=== PATIENT | male | born 1940 | race Caucasian/White ===

== ENCOUNTER 2016-05-01 08:20 | Observation (INO) | payer OTHER, MEDICARE ==
[2016-04-24 10:13] LABS: HEMATOCRIT 42.8 % (42-52); MEAN CELL VOLUME 83.9 fL (80-100); MEAN CORPUSCULAR HEMOGLOBIN 30.4 pg (25-34); MEAN CORPUSCULAR HGB CONC 36.2 g/dl (32-36); MEAN PLATELET VOLUME 10.4 fL (7.4-10.4); PLATELET COUNT 167 K/uL (130-400); WHITE BLOOD COUNT 5.84 K/uL (4.8-10.8)
[2016-04-24 10:32] LABS: INR 0.9 (0.9-1.1); PROTHROMBIN TIME (PATIENT) 10.1 SECONDS (9.0-12.0)
[2016-04-24 10:43] LABS: BLOOD UREA NITROGEN 18 mg/dl (7-18); BUN/CREATININE RATIO 17.6 (10-20); CALCIUM 9.6 mg/dl (8.5-10.1); CARBON DIOXIDE 23 mmol/L (21-32); CHLORIDE 108 mmol/L (98-107); GLUCOSE 111 mg/dl (70-99); POTASSIUM 3.8 mmol/L (3.5-5.1); SODIUM 140 mmol/L (136-145)
[2016-05-01] VITALS (8 sets, daily range): BP systolic 112–143; BP diastolic 70–83; PULSE 55–66; TEMP 36.4–36.9; O2SAT 94–97; Ht 175.3 cm; Wt 95.7 kg
[~2016-05-01] VITALS: Ht 175.3 cm; Wt 95.7 kg
[~2016-05-01 08:20] MED LIST: ACET-1256 PO; ALLO300T2 PO; ASPI-232 PO; ATOR-26 PO; CARV6.252 PO; CEFAZOLIN 1000MG/55 ML D5W 55 ML IV SCH; CHOL1000 PO; CLC6 PO; CLR10 PO; FLUN0.02 NAE; LACTATED RINGER'S 1000ML IV SCH; LOSA1TAB PO; NTRGSL/4 UT; PLV75 PO
[2016-05-01] MEDS ORDERED: CLOP1TAB15 PO (09:16)
[2016-05-01] MEDS ORDERED: BACITRACIN 50000 UNIT VIAL ONE (10:01)
[2016-05-01] MEDS ORDERED: LIDOCAINE HCL 1% 20 ML VIAL ONE (10:01)
[2016-05-01] MEDS ORDERED: BACITRACIN OINT 0.9 GM PKT ONE (10:01)
[2016-05-01] MEDS ORDERED: FENTANYL CITRATE INJ 50 MCG/1 ML 2 ML VIAL ONE (10:04)
[2016-05-01] MEDS ORDERED: MIDAZOLAM HCL 5 MG/ML 1 ML VIAL ONE (10:04)
--- NOTE | 2016-05-01 10:16 | History & Physical Bridge Note ---
H&P Re-Evaluation Bridge Note: I have examined the patient, reviewed the History & Physical and in the interval since the performance of the History & Physical I have noted the following changes of clinical significance: No changes noted. I reviewed the indications, procedure, risks and alternatives with the patient and his family and they understand and he agrees to proceed. Consent obtained.
--- NOTE | 2016-05-01 10:16 | Procedure Note ---
Pre-Mod Sedation Assessment General Date of Moderate Sedation: May 01, 2016. Vital Signs: Vital Signs Past 12 Hours Date Time Temp Pulse Resp B/P Pulse Ox O2 Delivery O2 Flow Rate FiO2 05/01/16 09:05 36.9 62 18 123/81 97 Room Air Review Cardiovascular: regular rate, rhythm Abdomen: normal bowel sounds Lungs: lungs clear Pre-Sedation Airway Assessment Oral Cavity: Capped Teeth Smoking Status: Former Smoker Procedure Planning Contraindications-for Mod Sed: None Yes Notes The planned sedation has been discussed with the patient and consent obtained. I have identified the patient, determined the appropriateness of sedation and have assessed the patient immediately prior to the procedure. All medicine(s) and interventions are by my order.
[2016-05-01] MEDS ORDERED: KEFZOL SPECIAL PROCEDURE STOCK 1 GM ADDVIAL IV ONE (10:32)
--- NOTE | 2016-05-01 11:57 | Procedure Note ---
Post-Mod Sedation Assessment General Date of Moderate Sedation May 01, 2016. Vital Signs: Vital Signs Past 12 Hours Date Time Temp Pulse Resp B/P Pulse Ox O2 Delivery O2 Flow Rate FiO2 05/01/16 11:50 59 18 99/75 96 Nasal Cannula 3 05/01/16 09:05 36.9 62 18 123/81 97 Room Air Review - Discharge Criteria Vital Signs Stable: Yes Alert/Oriented/Conversant: Yes Returned to Baseline Mental St: Yes Nausea Absent/Minimal: Yes Pain/Discomfort/Absent/Minimal: Yes Normal/Baseline Respirations: Yes Active Bleeding?: No
--- NOTE | 2016-05-01 11:59 | Cardiology Procedure Brief Nt ---
Preliminary Cardiology Note Procedure Date May 01, 2016. Pre-Procedure Diagnosis Ischemic cardiomyopathy Post-Procedure Diagnosis same Procedure(s) Performed Left subclavian venogram Dual-chamber ICD implantation Helicopter Technician Dr. Jaramillo Clinical Research Analyst(s) none Estimated Blood Loss 50 cc Preliminary Findings Good lead position, good measurements Recommendations Monitor overnight Specimens None Anesthesia local with sedation Complication(s) None Disposition PCU
[2016-05-01] MEDS ORDERED: ACETAMINOPHEN 325 MG TAB PO PRN (12:00)
[2016-05-01] MEDS ORDERED: NITROGLYCERIN 0.4 MG SL PER TAB CHARGE UT PRN (12:15)
[2016-05-01] MEDS ORDERED: IV FLUIDS COMPLETED PRN (14:30)
[2016-05-01] MEDS ORDERED: INFLUENZA ADMINISTRATION CHARGE ONE (15:30)
[2016-05-01] MEDS ORDERED: PNEUMOCOCCAL ADMINISTRATION CHARGE ONE (15:30)
[2016-05-01] MEDS ORDERED: INFLUENZA VIRUS QUAD VACCINE 0.5 ML SYR IM. ONE (15:30)
[2016-05-01] MEDS ORDERED: PNEUMOCOCCAL POLYSACCHARIDES 25 MCG/0.5 ML VIAL/SYR IM. ONE (15:30)
[2016-05-01] MEDS: KETOROLAC TROMETHAMINE 10 MG TAB PO PRN (15:52)
[2016-05-01] MEDS: CEFAZOLIN IV 2,000 MG in DEXTROSE 5% 50ML 50 ML IV SCH (18:17)
[2016-05-01] MEDS ORDERED: CARVEDILOL 12.5 MG TAB PO SCH (21:00)
[2016-05-01] MEDS ORDERED: COLCHICINE 0.6 MG TAB PO SCH (21:00)
[2016-05-01] MEDS ORDERED: ATORVASTATIN 40 MG TAB PO SCH (21:00)
[2016-05-02] MEDS: KETOROLAC TROMETHAMINE 10 MG TAB PO PRN ×2 (00:45→07:58)
[2016-05-02] MEDS: CEFAZOLIN IV 2,000 MG in DEXTROSE 5% 50ML 50 ML IV SCH (02:42)
[2016-05-02 04:00] VITALS: BP 103/64; PULSE 59; TEMP 36.7; O2SAT 96
--- NOTE | 2016-05-02 07:49 | DIAGNOSTIC IMAGING REPORT ---
CHEST 2 VIEWS ROUTINE HISTORY: EXACT TIME ORDERED Evaluate for pneumothorax and lead placement COMPARISON: Chest 05/17/2011. FINDINGS: Interval placement left-sided dual-chamber pacemaker/defibrillator. Leads appear intact. No pneumothorax. No pleural effusions. The lungs are clear. The heart is normal in size. IMPRESSION: Interval placement left-sided dual-chamber pacemaker/defibrillator. The leads are intact. No pneumothorax. Electronically signed by: Justo Claros M.D. 05/02/2016 7:47 AM Dictated Date/Time: 05/02/2016 7:44 AM
[2016-05-02] MEDS ORDERED: CARV12.52 PO (08:33)
--- NOTE | 2016-05-02 08:49 | Discharge Instructions ---
Discharge Instructions Admission Ischemic cardiomyopathy Discharge Discharge Diagnosis / Problem: S/P Dual-chamber ICD implantation Discharge Goals Goal(s): Improve disease control Activity Recommendations Activity Limitations: as noted below . Instructions / Follow-Up Instructions / Follow-Up ACTIVITY RECOMMENDATIONS: * Do not raise affected arm over head for 2 weeks. SPECIAL CARE INSTRUCTIONS: * If bleeding occurs, apply direct pressure to area for 5 minutes. * Call your doctor if you have severe pain, fever, drainage or bleeding at site. * Keep dressing on and dry for 48 hours then remove. * Keep any scheduled doctor's appointment. * Implant Card - hand held device with website information given. SKIN IRRITATION: * You may experience some redness and/or swelling in the area where radiation was administered. If any skin irritation occurs, please contact your family physician. FOLLOW UP VISIT: 05/05/16 @ 10:00 am for incision check Current Hospital Diet Patient's current hospital diet: AHA Diet (Heart Healthy) Discharge Diet Recommended Diet: AHA Diet (Heart Healthy) Pending Studies Studies pending at discharge: no Medical Emergencies . Who to Call and When: Medical Emergencies: If at any time you feel your situation is an emergency, please call 911 immediately. . Non-Emergent Contact Non-Emergency issues call your: Health Science Writer . . "Provider Documentation" section prepared by Jen Huber. VTE Core Measure Inpt VTE Proph given/why not?: Treatment not indicated
[2016-05-02] MEDS ORDERED: ATORVASTATIN 40 MG TAB PO SCH (09:00)
[2016-05-02] MEDS ORDERED: LOSARTAN POTASSIUM 25 MG TAB PO SCH (09:00)
[2016-05-02] MEDS ORDERED: LORATADINE 10 MG TAB PO SCH (09:00)
[2016-05-02] MEDS ORDERED: ASPIRIN 81 MG ECTAB PO SCH (09:00)
[2016-05-02] MEDS ORDERED: ALLOPURINOL 300 MG TAB PO SCH (09:00)
[2016-05-02] MEDS ORDERED: CLOPIDOGREL BISULFATE 75 MG TAB PO SCH (09:00)
--- NOTE | 2016-05-02 09:02 | Cardiology Follow-Up ---
Subjective Date of Service: May 02, 2016. Pt evaluation today including: conversation w/ patient, physical exam, lab review, review of studies, review of inpatient medication list Social History Smoking Status: Former Smoker History of Alcohol Use: No Review of Systems Respiratory: No shortness of breath Cardiac: + chest pain Objective Vital Signs Past 12 Hours Date Time Temp Pulse Resp B/P Pulse Ox O2 Delivery O2 Flow Rate FiO2 05/02/16 08:00 Room Air 05/02/16 04:00 Room Air 05/02/16 04:00 36.7 59 18 103/64 96 Room Air 05/01/16 23:59 Room Air 05/01/16 23:28 36.9 63 18 112/70 96 Room Air Last Recorded Weight-Kilograms: 95.700 Intake & Output 8-Hour Column 05/01/16 05/02/16 05/02/16 16:00 00:00 08:00 Intake Total 100 ml 492 ml 200 ml Output Total 550 ml Balance 100 ml -58 ml 200 ml 24-Hour Column 05/02/16 08:00 Intake Total 792 ml Output Total 550 ml Balance 242 ml Physical Exam Constitutional: Level of Distress: NAD Lungs: Auscultation: breath sounds normal Cardiovascular: Heart Auscultation: RRR, no rubs Pacemaker site is clean and dry, no significant bleeding, no hematoma. Data Imaging: Position on chest x-ray, no pneumothorax EKG: Atrial pacing throughout with appropriate antegrade conduction Telemetry reviewed: Predominantly atrial pacing, ICD function ICD evaluation: Functioning well, R waves little bit low in bipolar configuration as they were at implant but are good in unipolar and with premature ventricular beats. Acceptable function. Assessment and Plan Doing well post-ICD, the device is functioning well and the site looks good. Stable for discharge after his dose of antibiotic which he can be given slightly early.
[2016-05-02 09:04] VITALS: BP 103/64; PULSE 59; TEMP 36.7; O2SAT 96
--- NOTE | 2016-05-02 17:17 | Discharge Summary ---
Discharge Summary Admission Date: May 01, 2016 at 11:59 Discharge Date: May 02, 2016 Discharge Disposition: Home Primary Diagnosis: Ischemic cardiomyopathy Secondary Diagnoses/Problems: Medical Problems: (1) CHF (congestive heart failure) Status: Resolved (2) Myocardial infarction Status: Resolved Procedures: Dual-chamber ICD implantation Discharge Instructions Last Recorded Wt (Kilograms): 95.700 Activity Recommendations: limitations as noted below Allergies: Coded Allergies: No Known Allergies (Unverified , 05/01/16) Additional Instructions: ACTIVITY RECOMMENDATIONS: * Do not raise affected arm over head for 2 weeks. SPECIAL CARE INSTRUCTIONS: * If bleeding occurs, apply direct pressure to area for 5 minutes. * Call your doctor if you have severe pain, fever, drainage or bleeding at site. * Keep dressing on and dry for 48 hours then remove. * Keep any scheduled doctor's appointment. * Implant Card - hand held device with website information given. SKIN IRRITATION: * You may experience some redness and/or swelling in the area where radiation was administered. If any skin irritation occurs, please contact your family physician. FOLLOW UP VISIT: Keep any scheduled doctor appointments. Special Care: Call your doctor if: * Temperature above 101 degrees * Pain not relieved by pain medicine ordered * There is increased drainage or redness from any incision * You have any unanswered questions or concerns. Avoid all tobacco products. If you need help to stop smoking, call [place]'s FREE QUITLINE at . This is a free call. Admission HPI This is a very pleasant 76-year-old gentleman who has a history of coronary artery disease including myocardial infarction 2011 at which time he had stent placement in the right coronary artery. More recent cardiac catheterization June 2015 showed severe LAD stenosis for which he had atherectomy and stent placement. He does have residual disease as well. He does have a history of a cardiomyopathy with an ejection fraction which has remained in the 30% range. He is on low dose carvedilol, he has had a lot of difficulty with fatigue and ambulatory difficulty when he is on higher doses. He is also on losartan. He does not have a lot of weight of heart failure symptoms, he does have some difficulty with exertion consistent with class II NYHA heart failure symptoms, he does not have exertional angina and does not have orthopnea or PND. He has never had lightheadedness, dizziness, presyncope or syncope. He continues to be very active although he cannot do as much as he used to. Admission Physical Exam Additional Comments: Constitutional: Alert, cooperative and in no distress. HEENT: Unremarkable Neck: No jugular venous distention, carotid pulses are normal and equal bilaterally without bruits. Pulmonary: Clear to auscultation bilaterally. Cardiac: Regular rhythm with no murmur, gallop or rub. Abdomen: Soft, nontender with normal bowel sounds. Extremities: No edema. Distal pulses intact. Neurologic: No focal findings. Gait is steady. Skin: No rash, ecchymoses or petechiae. Hospital Course Patient with ischemic cardiomyopathy and class II NYHA heart failure underwent dual-chamber ICD implantation on 05/02/[address] Jaramillo. He tolerated the procedure well. Device check the following day showed excellent sensing and pacing characteristics. CXR showed good lead placement and no evidence of pneumothorax. He was deemed stable for discharge home and will have a follow-up appointment on 05/05/16 for a wound check. His carvedilol dose was increased to 12.5 mg twice daily upon discharge. Total time spent on discharge = This includes examination of the patient, discharge planning, medication reconciliation, and communication with other providers.
--- NOTE | 2016-05-10 13:14 | OPERATIVE REPORT ---
DATE OF OPERATION: 05/01/2016 PREOPERATIVE DIAGNOSES: 1. Ischemic cardiomyopathy. 2. Class 3 congestive heart failure. 3. Sinus bradycardia. POSTOPERATIVE DIAGNOSES: Same. PROCEDURE: 1. Left subclavian venogram. 2. Dual chamber ICD implantation. HISTORY OF PRESENT ILLNESS: This is a 76-year-old male who has a history of ischemic cardiomyopathy with an ejection fraction of 30%. He has bradycardia and has not been able to tolerate high doses of beta blockade. He has an intolerance to beta jasen due to poor chronotropic response with activity and resting bradycardia. He requires an ICD for primary prevention of sudden cardiac , with his bradycardia we will plan to do a chamber pacemaker which may also help to improve his exercise ability and allow higher doses of beta blockade. He also has [place] [employer] class 2 congestive heart failure. PROCEDURE: After obtaining informed consent for the procedure, he was brought to the laboratory on 05/01/2016 being NPO after midnight. He was identified in the laboratory, prepped and draped in standard sterile manner for a left-sided ICD implantation. Left subclavian venogram was performed using dye injected via the left arm IV site to opacify the left subclavian vein. Once this was accomplished, left subclavian venipuncture was performed without difficulty and a guidewire placed through the left subclavian vein into the superior vena cava. The area was further infiltrated with 1% lidocaine local anesthetic and a 5 cm incision was made parallel to the left clavicle and 2 cm below it and carried down to the anterior pectoralis fascia. A pacemaker pocket was formed by blunt dissection anterior to the pectoralis fascia and a bacitracin-soaked sponge (50,000 units in 50 mL normal saline solution) was placed in the pocket. A 10.5-[place] Medtronic lead introducer was placed over the guidewire into the left subclavian vein, the dilator and guidewire were removed and a bipolar active fixation steroid tipped ventricular ICD lead was advanced through the introducer into the superior vena cava. The guidewire was placed back through introducer and introducer stripped away from lead and guidewire. An 8-[place] Medtronic lead introducer was placed over the guidewire into the left subclavian vein, the dilator and guidewire were removed and a bipolar active fixation steroid-tipped atrial lead was advanced through introducer into the superior vena cava. The guidewire was placed through the introducer and introducer stripped away from lead and guidewire. Using a curved stylette, the ventricular lead was advanced through the right ventricular outflow tract into the pulmonary artery and then using a straight stylette was positioned in the right ventricular apex. Once in position, the ventricular pacing threshold was evaluated in bipolar configuration at a pulse width of 0.5 milliseconds. The final ventricular pacing threshold was 0.4 volts with a current of 0.7 milliamp, 5-volt lead impedance was 520 ohms and R-waves were sensed at 4.7 millivolts. Diaphragmatic pacing was not present with a 10 volt bipolar output. Once the ventricular lead was in position, the atrial lead was positioned in the region of the atrial appendage and the screw extended fixing the lead in position. Once in position, atrial pacing threshold was evaluated in bipolar configuration at a pulse width of 0.5 milliseconds. Final atrial pacing threshold was 1.2 volts with a current of 1.5 milliamp, 5-volt lead impedance was 1033 ohms and P-waves were sensed at 3.2 millivolts. Diaphragmatic pacing was not present with a 10 volt bipolar output. Once the leads were in position, they were attached to the anterior pectoralis fascia using 2 sutures of 2-0 silk around each lead collar. The bacitracin-soaked sponge was removed from the pocket, the guidewire was removed from left subclavian vein and hemostasis was obtained. The ICD (Medtronic Evera) was attached to the leads and found to be functioning normally. It was placed in the pocket with the leads coiled beneath it and the incision was closed with a running double subcutaneous closure of 3-0 Vicryl followed by running subcuticular skin closure of 4-0 Vicryl. Bacitracin ointment was placed on incision and pressure dressing applied. The patient tolerated the procedure well, there were no complications and estimated blood loss was 50 mL. The patient was transferred to the telemetry unit for monitoring. The atrial lead is a Medtronic model 5076, serial #[id number] and is a bipolar active fixation steroid-tipped MRI compatible lead. The ventricular lead is a Medtronic model 6947M, serial #[id number] and is a bipolar active fixation steroid-tipped dual coil MRI compatible lead. The ICD is a Medtronic Evera MRI XT DR Yanes, model DBPF2M8. This is an MRI compatible system. Serial number is [id number]. ICD was reprogrammed in the laboratory to final settings. MAGAN
== END 2016-05-02 10:17 | disposition home or self-care (01) ==
LOC: C.ACU 08:20 → C.2T 11:59
PROVIDERS: ADMIT Internal Medicine Cardiovascular Disease; ATTEND Internal Medicine Cardiovascular Disease
DX: I25.5 Ischemic cardiomyopathy (principal); I50.9 Heart failure, unspecified; R00.1 Bradycardia, unspecified; I25.10 Atherosclerotic heart disease of native coronary artery without angina pectoris; E55.9 Vitamin D deficiency, unspecified; I25.2 Old myocardial infarction; K21.9 Gastro-esophageal reflux disease without esophagitis; M10.9 Gout, unspecified; Z87.891 Personal history of nicotine dependence; Z79.82 Long term (current) use of aspirin; Z90.49 Acquired absence of other specified parts of digestive tract; Z80.3 Family history of malignant neoplasm of breast

== ENCOUNTER → 2017-01-21 | Outpatient (CLI) | payer OTHER, MEDICARE ==
[~2017-01-21] MED LIST changes: +CARV12.52 PO; -CARV6.252 PO; -CEFAZOLIN 1000MG/55 ML D5W 55 ML IV SCH; +CLOP1TAB15 PO; -LACTATED RINGER'S 1000ML IV SCH; -PLV75 PO
--- NOTE | 2017-01-21 17:09 | DIAGNOSTIC IMAGING REPORT ---
L-SPINE MIN 4 VIEWS ROUTINE HISTORY: Pain M54.5 Chronic bilateral low back pain without [id number] Mu COMPARISON: None. FINDINGS: There is no fracture. No subluxation. Moderate degenerative disc changes throughout. Peripheral osteophytic reaction from the anterior and posterior vertebral bodies. Mild sclerosis of posterior facets. No evidence for compression deformity. IMPRESSION: Moderate degenerative disc change at the entire lumbar region. No acute process. The above report was generated using voice recognition software. It may contain grammatical, syntax or spelling errors. Electronically signed by: Hemant Cadena M.D. 01/21/2017 5:08 PM Dictated Date/Time: 01/21/2017 5:07 PM
== END | disposition home or self-care (01) ==
LOC: C.RAD 16:12
PROVIDERS: ATTEND Neuromusculoskeletal Medicine & OMM
DX: M54.5 Low back pain (principal); M62.838 Other muscle spasm

== ENCOUNTER → 2017-07-29 | Outpatient (CLI) | payer OTHER, MEDICARE ==
--- NOTE | 2017-07-29 15:47 | DIAGNOSTIC IMAGING REPORT ---
CHEST 2 VIEWS ROUTINE HISTORY: Cough. COMPARISON: Chest 05/02/2016. FINDINGS: The lungs are clear. Cardiac silhouette is normal in size. No pleural effusions. No pneumothorax. Left-sided pacemaker/defibrillator. IMPRESSION: No acute process. Electronically signed by: Justo Claros M.D. 07/29/2017 3:45 PM Dictated Date/Time: 07/29/2017 3:42 PM
== END | disposition home or self-care (01) ==
LOC: C.RAD1850 15:33
PROVIDERS: ATTEND Physician Assistant
DX: R05 Cough (principal)